=== PATIENT | male | born 1960 | race Caucasian/White ===

== ENCOUNTER 2022-02-22 17:33 | Inpatient (IN) | payer OTHER ==
[~2022-02-22] VITALS: Ht 177.8 cm; Wt 108.0 kg
[2022-02-22] MEDS ORDERED: FOLI1TAB94 PO (17:47)
[2022-02-22] MEDS ORDERED: PANT40TA49 PO (17:47)
[2022-02-22] MEDS ORDERED: RIFA550T PO (17:47)
[2022-02-22] MEDS ORDERED: FURO40TA5 PO (17:47)
[2022-02-22] MEDS ORDERED: VITA1CAP PO (17:47)
[2022-02-22] MEDS ORDERED: SPIR25TA6 PO (17:47)
[2022-02-22 18:22] LABS: HEMATOCRIT 41.2 % (36.7-47.1); MEAN CORPUSCULAR HEMOGLOBIN 31.1 uug (23.8-33.4); MEAN CORPUSCULAR VOLUME 94.9 fL (73.0-96.2); PLATELET COUNT (AUTO) 51 K/uL (152-348)
[2022-02-22 18:45] LABS: CARBON DIOXIDE 21 mmol/L (21-32); CHLORIDE 104 mmol/L (98-107); CREATININE 1.5 mg/dL (0.6-1.3); GLUCOSE 117 mg/dL (74-106); POTASSIUM 4.2 mmol/L (3.5-5.1); UREA NITROGEN, BLOOD 22 mg/dL (7-18)
[2022-02-22 18:54] LABS: ALANINE AMINOTRANSFERASE 13 U/L (16-63); ALKALINE PHOSPHATASE 123 U/L (50-136); ASPARTATE AMINOTRANSFERASE 24 U/L (15-37); BILIRUBIN,DIRECT 0.7 mg/dL (0.0-0.2); BILIRUBIN,TOTAL 5.5 mg/dL (0.2-1.0); TOTAL PROTEIN, SERUM 6.9 g/dL (6.4-8.2)
[2022-02-22 19:17] LABS: LIPASE 121 U/L (73-393)
--- NOTE | 2022-02-22 19:23 | NUR ---
report given to Dodie HERNANDEZ, pt in stable condition.
--- NOTE | 2022-02-22 19:23 | NUR ---
rectal temp 100.5, MD notified.
[2022-02-22 19:24] LABS: BAND % (MANUAL) 6 % (0-10); BASOPHILS % (MANUAL) 33 % (0-2); EOSINOPHILS % (MANUAL) 1 % (0-8); LYMPHOCYTES % (MANUAL) 2 % (20-40); MONOCYTES % (MANUAL) 4 % (2-10); NEUTROPHILS % (MANUAL) 54 % (42-75)
[2022-02-22] MEDS ORDERED: IV NS 1000 ML 1,000 ML IV ONE (19:45)
[2022-02-22] MEDS ORDERED: VANCOMYCIN 1G/D5W 200 ML PIGGYBACK IV ONE (19:45)
[2022-02-22] MEDS ORDERED: PIPERACILLIN SODIUM/TAZOBACTAM 3.375 G in IV DEXTROSE 5% 50 ML IV ONE (19:45)
[2022-02-22] MEDS ORDERED: PIPERACILLIN/TAZOBACTAM/D5W 50 ML IV ONE (19:51)
[2022-02-22 20:11] LABS: *BLOOD, URINE NEGATIVE (NEGATIVE); *CLARITY,URINE CLEAR (CLEAR); *COLOR,URINE YELLOW (YELLOW); *KETONES,URINE TRACE (NEGATIVE); *UROBILINOGEN,URINE 0.2 E.U./dl (NORMAL); LEUKOCYTE ESTERASE ,URINE NEGATIVE (NEGATIVE); NITRITE, URINE POSITIVE (NEGATIVE); UGLUCOSE NEGATIVE (NEGATIVE)
[2022-02-22 20:16] LABS: *BILIRUBIN,URIN 1+ (NEGATIVE)
[2022-02-22 20:17] LABS: ETHANOL < 3 MG/DL (0-0)
--- NOTE | 2022-02-22 20:27 | NUR ---
DUE ANTIBIOTICS GIVEN VIA THE RIGHT FOREARM H/L NO .20 SEE JG RODRIGUEZ .
[2022-02-22 20:30] LABS: RBC,URINE 0-3 /HPF (0-3)
[2022-02-22 20:31] LABS: BACTERIA,URINE NONE SEEN /HPF (NONE SEEN); SQUAMOUS EPITHELIAL CELL,UR FEW /HPF (NONE SEEN); WBC,URINE 0-3 /HPF (0-3)
--- NOTE | 2022-02-22 20:32 | NUR ---
INFORMED DRMik KRISHNAMURTHY URINE RESULT IS OUT WITH HIGH NITRITES AND BILIRUBIN .
--- NOTE | 2022-02-22 22:03 | NUR ---
REPORT GIVEN TO NEGRITA FROM [facility] .
[2022-02-22] MEDS ORDERED: ONDANSETRON 4 MG/2 ML VIAL IV PRN (22:45)
[2022-02-22] MEDS ORDERED: REMEDY ESSENTIAL ZINC PASTE 113 GM TP PRN (22:45)
--- NOTE | 2022-02-22 23:39 | NUR ---
REPORT GIVEN TO SHI HERNANDEZ . DX:SEPSIS
[2022-02-23 00:20] VITALS: BP 102/60
--- NOTE | 2022-02-23 00:20 | NUR ---
Admitted patient on tele floor with diagnosis of Sepsis due to lactic acid lever, under the care of Dr Lucia, patient alert oriented, ambulatory with assist, continent of bladder. Patient has james color unable to assesst for jaundice, DX of Cirrhosis of the liver, denies smoking, and mention that he quit drinking two year ago due cirrhosis of the liver, and trying to get liver transplant at [facility]. Patient appear to be weak, assist with toileting, call light within reach.
--- NOTE | 2022-02-23 00:24 | NUR ---
TRANSPORTED VIA ARON OSULLIVAN AND BERENICE LEE AT B/S [facility] WITH ALL BELONGINGS . V/S WNL . NO RESPIRATORY DISTRESS NOTED OR VERBALIZED .
[2022-02-23] MEDS: CEFTRIAXONE 1 G in IV DEXTROSE 5% 50 ML IV SCH ×2 (01:27→20:49)
[2022-02-23] MEDS: IV NS 1000 ML 1,000 ML IV PRN ×2 (01:28→16:38)
[2022-02-23] MEDS ORDERED: CEFTRIAXONE 1 G VIAL ONE (02:30)
[2022-02-23 04:00] VITALS: BP 101/52
[2022-02-23] MEDS: PANTOPRAZOLE SODIUM 40 MG TABLET.DR PO SCH (06:15)
--- NOTE | 2022-02-23 06:59 | NUR ---
Patient alert oriented, no sob no chest pain, no sob no chest pain, ambulate to toilet stand by assist, tele monitor sinus rhythm, no complain of pain, call light within reach. cont to monitor.
[2022-02-23 07:38] LABS: HEMATOCRIT 36.2 % (36.7-47.1); MEAN CORPUSCULAR HEMOGLOBIN 32.3 uug (23.8-33.4); MEAN CORPUSCULAR VOLUME 95.5 fL (73.0-96.2)
[2022-02-23 07:45] LABS: BILIRUBIN,TOTAL 5.1 mg/dL (0.2-1.0); CREATININE 1.3 mg/dL (0.6-1.3); MAGNESIUM 1.6 mg/dL (1.8-2.4); PHOSPHOROUS 2.8 mg/dL (2.5-4.9); TOTAL PROTEIN, SERUM 5.9 g/dL (6.4-8.2)
[2022-02-23 07:50] LABS: PLATELET COUNT (AUTO) 47 K/uL (152-348)
--- NOTE | 2022-02-23 07:57 | NUR ---
Awake, alert, oriented x 4. IVF infusing. Reports of back itchiness. Call light with in reach. Instructed to call for assistance. Bed alarm on.
[2022-02-23] MEDS: RIFAXIMIN 550 MG TABLET PO SCH ×2 (09:39→16:38)
[2022-02-23] MEDS: SPIRONOLACTONE 25 MG TABLET PO SCH (09:39)
[2022-02-23] MEDS: LACTULOSE 20 G/30 ML LIQUID UDC PO SCH ×3 (09:39→16:38)
[2022-02-23] MEDS: FOLIC ACID 1 MG TABLET PO SCH (09:39)
[2022-02-23] MEDS: VITAMIN B COMPLEX 1 TABLET PO SCH (09:40)
[2022-02-23 11:20] LABS: BAND % (MANUAL) 2 % (0-10); EOSINOPHILS % (MANUAL) 1 % (0-8); LYMPHOCYTES % (MANUAL) 9 % (20-40); MONOCYTES % (MANUAL) 11 % (2-10); NEUTROPHILS % (MANUAL) 77 % (42-75)
[2022-02-23] MEDS: MAGNESIUM SULFATE/D5W 100 ML IV SCH ×2 (11:42→13:22)
--- NOTE | 2022-02-23 11:45 | NUR ---
MG 1.6. Magnesium IV given as ordered
[2022-02-23 12:00] VITALS: BP 106/55
[2022-02-23] MEDS ORDERED: HYDROCORTISONE 1% CREAM 30 GM TUBE TP PRN (14:00)
[2022-02-23 16:00] VITALS: BP 107/57
--- NOTE | 2022-02-23 17:30 | NUR ---
Reports of itchiness in the back. Hydrocortisone cream applied with relief.
[2022-02-23 20:00] VITALS: BP 118/61
--- NOTE | 2022-02-23 20:00 | NUR ---
escorted patient to the bathroom voided and had a bm patient on lactulose.petra ambulated with walker at b/s.
[2022-02-24] VITALS: BP 103/59
[2022-02-24] MEDS: IV NS 1000 ML 1,000 ML IV PRN (03:55)
[2022-02-24 04:00] VITALS: BP 94/57
[2022-02-24] MEDS: PANTOPRAZOLE SODIUM 40 MG TABLET.DR PO SCH (06:18)
[2022-02-24 07:20] LABS: CREATININE 1.1 mg/dL (0.6-1.3); MAGNESIUM 1.9 mg/dL (1.8-2.4); POTASSIUM 4.2 mmol/L (3.5-5.1)
[2022-02-24] MEDS: FOLIC ACID 1 MG TABLET PO SCH (08:47)
[2022-02-24] MEDS: LACTULOSE 20 G/30 ML LIQUID UDC PO SCH ×3 (08:47→16:33)
[2022-02-24] MEDS: RIFAXIMIN 550 MG TABLET PO SCH ×2 (08:47→17:10)
[2022-02-24] MEDS: VITAMIN B COMPLEX 1 TABLET PO SCH (08:47)
[2022-02-24] MEDS: SPIRONOLACTONE 25 MG TABLET PO SCH (08:47)
--- NOTE | 2022-02-24 09:52 | NUR ---
Social work consult was requested for a patient on [facility] for substance abuse resources. Patient is 61-year-old male admitted to the hospital for sepsis. Patient is alert and oriented X4. Patient presents with anxious mood and congruent affect. Patient states his primary contact center assistant is , More Friedman ([phone]) and she lives with the patient at [id number] [place] [address] in a two-story house. Patient states they have a good relationship. Patient states he has a niece, Valencia ([phone]) that lives a block away and they have a good relationship. Patient states that he is currently unemployed and receiving social security unemployment. Patient states he is currently driving. Patient states that he has a history of alcohol abuse. Patient states he has been sober for 2 years. DEMOND provided the patient resources for substance abuse from [address] [address] ([phone]), [facility] [address] [facility] [address] ([phone]), and [address] [address] ([phone]). SW also provided the number for alcohol[facility] [employer] ([phone]). Patient appeared appreciative of the resources. However, patient stated that he does not need treatment for alcohol abuse at this time. SW placed the resources in the patients chart. Patient denies a history of a psychiatric diagnosis. Patient denies suicidal or homicidal ideation. The discharge plan is for his , More ([phone]) to take him to home to [address] [place] [address] at discharge.
[2022-02-24 11:48] VITALS: BP 105/60
[2022-02-24] MEDS: ENSURE ENLIVE (VAN) 240 ML LIQUID PO SCH (12:46)
[2022-02-24] MEDS: PROTEIN SUPPLEMENT (PROSTAT) 30 ML LIQUID PO SCH (12:46)
[2022-02-24 15:52] VITALS: BP 98/63
[2022-02-24 20:00] VITALS: BP 96/52
[2022-02-24] MEDS: CEFTRIAXONE 1 G in IV DEXTROSE 5% 50 ML IV SCH (22:42)
[2022-02-25 04:33] VITALS: BP 92/46
--- NOTE | 2022-02-25 05:52 | NUR ---
PT IS MONITORED HOURLY NO SIGNS OF DISTRESS NOTED PT GIVEN MEDICATION ORDERED NO SIGNS OF ADVERSE REACTION NOTED.PT IV WAS CHANGED TO RT HAND INSTEAD OF FOREARE 20G TOLERATED WELL WILL CONTINUE TO MONITOR.
[2022-02-25 06:45] LABS: HEMATOCRIT 33.7 % (36.7-47.1); MEAN CORPUSCULAR HEMOGLOBIN 31.9 uug (23.8-33.4); MEAN CORPUSCULAR VOLUME 94.8 fL (73.0-96.2); PLATELET COUNT (AUTO) 52 K/uL (152-348)
[2022-02-25 07:14] LABS: BILIRUBIN,TOTAL 2.3 mg/dL (0.2-1.0); MAGNESIUM 1.7 mg/dL (1.8-2.4); PHOSPHOROUS 3.5 mg/dL (2.5-4.9); POTASSIUM 4.1 mmol/L (3.5-5.1); TOTAL PROTEIN, SERUM 5.6 g/dL (6.4-8.2)
[2022-02-25] MEDS: PANTOPRAZOLE SODIUM 40 MG TABLET.DR PO SCH (07:19)
[2022-02-25] MEDS: LACTULOSE 20 G/30 ML LIQUID UDC PO SCH ×2 (08:44→12:24)
[2022-02-25] MEDS: PROTEIN SUPPLEMENT (PROSTAT) 30 ML LIQUID PO SCH (08:44)
[2022-02-25] MEDS: SPIRONOLACTONE 25 MG TABLET PO SCH (08:44)
[2022-02-25] MEDS: ENSURE ENLIVE (VAN) 240 ML LIQUID PO SCH (08:44)
[2022-02-25] MEDS: VITAMIN B COMPLEX 1 TABLET PO SCH (08:45)
[2022-02-25] MEDS: FOLIC ACID 1 MG TABLET PO SCH (08:45)
[2022-02-25] MEDS: RIFAXIMIN 550 MG TABLET PO SCH (08:46)
[2022-02-25] MEDS ORDERED: MAGNESIUM OXIDE 400 MG TABLET PO ONE (09:00)
[2022-02-25 09:06] VITALS: BP 172/61
--- NOTE | 2022-02-25 09:09 | NUR ---
Disregard vitals taken at 906. Vitals for another patient. Addendum: 02/25/22 at 909 by OLAF COLLINS RN Amended: Links added.
[2022-02-25 11:40] LABS: EOSINOPHILS % (MANUAL) 1 % (0-8); LYMPHOCYTES % (MANUAL) 23 % (20-40); MONOCYTES % (MANUAL) 8 % (2-10); NEUTROPHILS % (MANUAL) 68 % (42-75)
[2022-02-25 12:00] VITALS: BP 95/54
[2022-02-25] MEDS ORDERED: OXYCODONE HCL 5 MG TABLET PO PRN (12:45)
[2022-02-25] MEDS ORDERED: LACT10SO7 PO (13:27)
[2022-02-25] MEDS ORDERED: FURO-152 PO (13:27)
[2022-02-25] MEDS ORDERED: OXYC5TAB3 PO (13:27)
[2022-02-25] MEDS ORDERED: METR500T PO (13:31)
[2022-02-25] MEDS ORDERED: LEVO500T90 PO (13:31)
--- NOTE | 2022-02-25 14:42 | NUR ---
Patient being discharged from unit awaiting pear picker from patient's . IV site removed. Discharge education provided.
--- NOTE | 2022-02-25 15:03 | NUR ---
Patient discharged form unit at 1500.
== END 2022-02-25 15:00 | disposition home or self-care (01) | DRG 720 ==
LOC: ER 17:38 → TELE3 22:44 → MEDSURG3 02-24 09:18
PROVIDERS: ADMIT Internal Medicine; ATTEND Internal Medicine
DX: A41.9 Sepsis, unspecified organism (principal); N17.0 Acute kidney failure with tubular necrosis; E43 Unspecified severe protein-calorie malnutrition; D69.6 Thrombocytopenia, unspecified; I85.10 Secondary esophageal varices without bleeding; K65.2 Spontaneous bacterial peritonitis; K76.6 Portal hypertension; K70.30 Alcoholic cirrhosis of liver without ascites; Z20.822 Contact with and (suspected) exposure to COVID-19; Z86.16 Personal history of COVID-19; R53.1 Weakness; D64.9 Anemia, unspecified; E66.9 Obesity, unspecified; Z68.34 Body mass index [BMI] 34.0-34.9, adult; E86.0 Dehydration; K42.9 Umbilical hernia without obstruction or gangrene; F10.21 Alcohol dependence, in remission
CPT/HCPCS: 36415; 70030-TC; 71045; 76700; 83605; 83690; 83735; 84100; 84153; 84484; 85025; 86803; 87040; 87086; 87806; 93005; 93307; A4663; G0378; G0480; J0696; J2543; J3370; J3475; J7040